=== PATIENT | female | born 1960 | race African-American/Black ===

== ENCOUNTER 2023-12-30 18:37 | Inpatient (IN) | payer MEDICAID ==
[~2023-12-30] VITALS: Ht 162.6 cm; Wt 48.5 kg
[2023-12-30 18:43] VITALS: O2SAT 98
[2023-12-30 21:22] LABS: CHLORIDE 110 mEq/L (98-107); POTASSIUM 3.1 mEq/L (3.5-5.1); SODIUM 141 mEq/L (136-145)
[2023-12-30 21:23] LABS: CALCIUM 8.9 mg/dL (8.7-10.4); CARBON DIOXIDE 22 mEq/L (21-32)
[2023-12-30 21:28] LABS: CREATININE 0.9 mg/dL (0.6-1.0); GLUCOSE 115 mg/dL (70-105); TROPONIN I HIGH SENSITIVITY 5 ng/L (3.0-34); UREA NITROGEN BLOOD 9 mg/dL (9-23)
[2023-12-30 21:29] LABS: LACTIC ACID 2.9 mmol/L (0.4-2.0)
[2023-12-30 21:30] LABS: ALANINE AMINOTRANSFERASE < 7 IU/L (10-49); ALBUMIN 3.5 g/dL (3.2-4.8); BILIRUBIN TOTAL 0.2 mg/dL (0.1-1.0); PROTEIN TOTAL 6.7 g/dL (6.0-8.3)
[2023-12-30 21:41] LABS: INR 1.1; PARTIAL THROMBOPLASTIN TIME 24.5 sec (23.4-31.0); PROTHROMBIN TIME 11.9 sec (9.6-11.0)
[2023-12-30 22:16] LABS: MEAN CORPUSCULAR HGB CONC 27.2 g/dL (31.0-37.0); MEAN CORPUSCULAR VOLUME 51.5 fL (81.0-99.0); MEAN PLATELET VOLUME 8.2 fl (7.4-10.4); PLATELET 459 x1000/uL (130-400); RED BLOOD CELL COUNT 1.96 mill/uL (4.2-5.4); RED CELL DISTRIBUTION WIDTH 19.8 % (11.6-14.6); WHITE BLOOD COUNT 10.3 x1000/uL (4.5-11.0)
[2023-12-30 22:19] LABS: ASPARTATE AMINOTRANSFERASE < 8 IU/L (<34); BILIRUBIN DIRECT < 0.1 mg/dL (<=3.0); ETHANOL BLOOD < 10 mg/dL (<10)
[2023-12-30 22:20] LABS: DIFFERENTIAL COMMENT 1
[2023-12-30 22:23] LABS: HEMOGLOBIN. 2.8 g/dL (12.0-16.0)
[2023-12-30 22:24] LABS: HEMATOCRIT. 10.1 % (36.0-48.0)
[2023-12-30] MEDS: KCL 10MEQ/50ML PREMIX 50 ML IV SCH (22:27)
[2023-12-30 22:34] LABS: HYPOCHROMASIA 2+; MICROCYTOSIS 3+; PLATELET ESTIMATE NORMAL
[2023-12-30] MEDS: IOHEXOL-350 100 ML BOTTLE ONE (23:30)
[2023-12-31] MEDS: KCL 10MEQ/50ML PREMIX 50 ML IV SCH (06:09)
[2023-12-31] MEDS ORDERED: ONDANSETRON HCL 4MG/2ML INJ IV PRN (10:15)
[2023-12-31] MEDS: HYDROCODONE/ACETAMINOPHEN 10/325MG TABLET PO PRN (14:20)
[2023-12-31 15:23] LABS: HEMATOCRIT 25.7 % (36.0-48.0); HEMOGLOBIN 8.3 g/dL (12.0-16.0)
[2023-12-31 15:42] LABS: IRON 147 ug/dL (50-170)
[2023-12-31 15:44] LABS: TOTAL IRON BINDING CAPACITY 260 ug/dl (250-425)
[2023-12-31 17:18] VITALS: BP 144/73; PULSE 81; RESP 18; TEMP 36.55848; O2SAT 100
[2023-12-31] MEDS ORDERED: HYDR25TA PO (17:21)
[2023-12-31] MEDS ORDERED: AMLO5TAB88 PO (17:21)
[2023-12-31 17:22] VITALS: BP 144/73; PULSE 81; RESP 18; TEMP 36.5848
[2023-12-31] MEDS: POLYETHYLENE GLYCOL 3350 (17GM) 1 DOSE PACK PO SCH (17:42)
[2023-12-31 20:00] VITALS: BP 144/49; PULSE 83; RESP 18; TEMP 36.3918; O2SAT 96
[2023-12-31] MEDS: CEFTRIAXONE 1GM/50ML 50 ML IV SCH (21:00)
[2023-12-31] MEDS: VANCOMYCIN 1G PREMIX 200 ML IV NR (22:00)
[2023-12-31 22:27] LABS: HEMATOCRIT 26.4 % (36.0-48.0); HEMOGLOBIN 8.6 g/dL (12.0-16.0)
[2024-01-01] VITALS: BP 125/68; PULSE 79; RESP 17; TEMP 36.44736; O2SAT 99
[2024-01-01 02:15] LABS: HEMATOCRIT 25.4 % (36.0-48.0); HEMOGLOBIN 8.1 g/dL (12.0-16.0)
[2024-01-01 02:37] LABS: *AMPHETAMINES SCREEN URINE NEGATIVE (NEGATIVE)
[2024-01-01 02:38] LABS: *BARBITURATES SCREEN URINE NEGATIVE (NEGATIVE); *BENZODIAZEPINES SCREEN URINE NEGATIVE (NEGATIVE); *COCAINE SCREEN URINE NEGATIVE (NEGATIVE); CANNABINOID URINE SCREEN NEGATIVE (NEGATIVE); ECSTASY MDMA SCREEN URINE NEGATIVE (NEGATIVE); METHADONE URINE SCREEN NEGATIVE (NEGATIVE); OPIATES URINE SCREEN PRESUMPTIVE POSITIVE (NEGATIVE); PHENCYCLIDINE URINE SCREEN NEGATIVE (NEGATIVE)
[2024-01-01 04:00] VITALS: BP 148/82; PULSE 83; RESP 18; TEMP 36.55848; O2SAT 97
[2024-01-01 07:55] LABS: BASOPHILS % 0.5 % (0.0-2.0); EOSINOPHILS % 0.5 % (0.0-5.0); HEMATOCRIT. 26.2 % (36.0-48.0); HEMOGLOBIN. 8.1 g/dL (12.0-16.0); LYMPHOCYTES % 9.8 % (20.0-50.0); MEAN CORPUSCULAR HEMOGLOBIN 21.9 pg (28.0-32.0); MEAN CORPUSCULAR HGB CONC 30.9 g/dL (31.0-37.0); MEAN CORPUSCULAR VOLUME 70.9 fL (81.0-99.0); MEAN PLATELET VOLUME 8.6 fl (7.4-10.4); MONOCYTES % 8.4 % (2.0-8.0); NEUTROPHILS % 80.8 % (40.0-76.0); PLATELET 352 x1000/uL (130-400); RED CELL DISTRIBUTION WIDTH 33.1 % (11.6-14.6); WHITE BLOOD COUNT 11.6 x1000/uL (4.5-11.0)
[2024-01-01 08:00] VITALS: BP 121/58; PULSE 101; RESP 20; TEMP 36.55848; O2SAT 100
[2024-01-01 08:06] LABS: CALCIUM 8.9 mg/dL (8.7-10.4); CHLORIDE 110 mEq/L (98-107); POTASSIUM 3.9 mEq/L (3.5-5.1); SODIUM 137 mEq/L (136-145)
[2024-01-01 08:07] LABS: CARBON DIOXIDE 23 mEq/L (21-32)
[2024-01-01 08:12] LABS: GLUCOSE 89 mg/dL (70-105); UREA NITROGEN BLOOD 10 mg/dL (9-23)
[2024-01-01 08:37] LABS: CREATININE 0.9 mg/dL (0.6-1.0); DIFFERENTIAL COMMENT 1
[2024-01-01] MEDS: LORAZEPAM 2MG/ML INJ IV NR (10:11)
[2024-01-01] MEDS: VANCOMYCIN 1G PREMIX 200 ML IV NR (11:50)
[2024-01-01 12:00] VITALS: BP 132/77; PULSE 100; RESP 18; TEMP 36.50292; O2SAT 98
[2024-01-01 13:08] LABS: HEMATOCRIT 26.8 % (36.0-48.0); HEMOGLOBIN 8.2 g/dL (12.0-16.0)
[2024-01-01 16:00] VITALS: BP 124/68; PULSE 97; RESP 18; TEMP 37.44744; O2SAT 99
[2024-01-01] MEDS: BISACODYL 5MG TABLET PO NR (17:06)
[2024-01-01 17:08] LABS: CLARITY URINE CLEAR (CLEAR); COLOR URINE ORANGE (YELLOW); GLUCOSE URINE NEGATIVE (NEGATIVE); KETONES URINE NEGATIVE (NEGATIVE); LEUKOCYTE ESTERASE URINE NEGATIVE (NEGATIVE); NITRITE URINE NEGATIVE (NEGATIVE); OCCULT BLOOD URINE NEGATIVE (NEGATIVE); PH URINE 6.5 (4.5-8.0); PROTEIN URINE NEGATIVE (NEGATIVE); SPECIFIC GRAVITY URINE 1.006 (1.005-1.030); UROBILINOGEN URINE 0.2 E.U./dL (0.2-1.0)
[2024-01-01 20:00] VITALS: BP 118/67; PULSE 88; RESP 19; TEMP 36.89184; O2SAT 98
[2024-01-01] MEDS: ATORVASTATIN CALCIUM 20MG TABLET PO SCH (20:55)
[2024-01-01 21:59] LABS: HEMATOCRIT 24.9 % (36.0-48.0); HEMOGLOBIN 8.1 g/dL (12.0-16.0)
[2024-01-01] MEDS: VANCOMYCIN 500MG PREMIX 100 ML IV SCH (22:10)
[2024-01-02] VITALS: BP 120/66; PULSE 90; RESP 19; TEMP 36.61404; O2SAT 100
[2024-01-02 01:49] LABS: HEMATOCRIT 25.3 % (36.0-48.0)
[2024-01-02 04:00] VITALS: BP 122/67; PULSE 89; RESP 19; TEMP 36.6696; O2SAT 100
[2024-01-02 07:37] LABS: HEMATOCRIT 28.7 % (36.0-48.0); HEMOGLOBIN 8.8 g/dL (12.0-16.0)
[2024-01-02 08:00] VITALS: BP 147/84; PULSE 91; RESP 18; TEMP 37.00296; O2SAT 96
[2024-01-02] MEDS ORDERED: NALOXONE HCL 0.4MG/ML VIAL IV PRN (11:30)
[2024-01-02 12:00] VITALS: BP 145/79; PULSE 109; RESP 18; TEMP 38.00304; O2SAT 100
[2024-01-02] MEDS: ACETAMINOPHEN 325MG TABLET PO PRN (13:29)
[2024-01-02 16:00] VITALS: BP 143/84; PULSE 98; RESP 18; TEMP 37.00296; O2SAT 100
[2024-01-02 20:00] VITALS: BP 129/60; PULSE 95; RESP 20; TEMP 36.89184; O2SAT 95
[2024-01-03] VITALS: BP 130/65; PULSE 92; RESP 20; TEMP 36.78072; O2SAT 99
[2024-01-03 04:00] VITALS: BP 132/60; PULSE 87; RESP 20; TEMP 36.6696; O2SAT 98
[2024-01-03 07:11] LABS: CHLORIDE 108 mEq/L (98-107); POTASSIUM 3.9 mEq/L (3.5-5.1); SODIUM 139 mEq/L (136-145)
[2024-01-03 07:12] LABS: CARBON DIOXIDE 22 mEq/L (21-32)
[2024-01-03 07:17] LABS: GLUCOSE 83 mg/dL (70-105); UREA NITROGEN BLOOD 5 mg/dL (9-23)
[2024-01-03 07:32] LABS: CREATININE 0.5 mg/dL (0.6-1.0)
[2024-01-03 08:00] VITALS: BP 130/69; PULSE 88; RESP 18; TEMP 36.6696; O2SAT 99
[2024-01-03] MEDS: VANCOMYCIN 750MG PREMIX 150 ML IV SCH (10:47)
[2024-01-03 12:00] VITALS: BP 114/60; PULSE 87; RESP 18; TEMP 36.55848; O2SAT 99
[2024-01-03 16:00] VITALS: BP 137/76; PULSE 90; RESP 18; TEMP 36.61404; O2SAT 99
[2024-01-03 20:00] VITALS: BP 123/60; PULSE 89; RESP 18; TEMP 36.6696; O2SAT 97
[2024-01-04] VITALS: BP 120/77; PULSE 90; RESP 20; TEMP 36.55848; O2SAT 98
[2024-01-04 04:00] VITALS: BP 119/69; PULSE 93; RESP 18; TEMP 36.6696; O2SAT 97
[2024-01-04 08:00] VITALS: BP 135/68; PULSE 84; RESP 20; TEMP 36.50292; O2SAT 99
[2024-01-04 11:49] VITALS: BP 138/72; PULSE 89; RESP 19; TEMP 36.6696; O2SAT 98
[2024-01-04] MEDS: SODIUM HYPOCHLORITE 0.125% 473ML SOLUTION TOP SCH (14:34)
[2024-01-04 15:40] VITALS: BP 133/78; PULSE 94; RESP 20; TEMP 35.94732; O2SAT 100
[2024-01-04 16:14] LABS: BASOPHILS % 0.9 % (0.0-2.0); EOSINOPHILS % 1.5 % (0.0-5.0); HEMOGLOBIN. 8.3 g/dL (12.0-16.0); LYMPHOCYTES % 15.4 % (20.0-50.0); MEAN CORPUSCULAR HEMOGLOBIN 22.9 pg (28.0-32.0); MEAN CORPUSCULAR HGB CONC 31.9 g/dL (31.0-37.0); MEAN CORPUSCULAR VOLUME 71.8 fL (81.0-99.0); MEAN PLATELET VOLUME 8.6 fl (7.4-10.4); MONOCYTES % 7.8 % (2.0-8.0); NEUTROPHILS % 74.4 % (40.0-76.0); PLATELET 357 x1000/uL (130-400); RED BLOOD CELL COUNT 3.62 mill/uL (4.2-5.4); RED CELL DISTRIBUTION WIDTH 35.1 % (11.6-14.6); WHITE BLOOD COUNT 10.1 x1000/uL (4.5-11.0)
[2024-01-04 16:23] LABS: DIFFERENTIAL COMMENT 1
[2024-01-04 16:39] LABS: CHLORIDE 105 mEq/L (98-107); POTASSIUM 4.2 mEq/L (3.5-5.1); SODIUM 138 mEq/L (136-145)
[2024-01-04 16:40] LABS: CARBON DIOXIDE 25 mEq/L (21-32)
[2024-01-04 16:41] LABS: CALCIUM 8.9 mg/dL (8.7-10.4)
[2024-01-04 16:46] LABS: CREATININE 0.6 mg/dL (0.6-1.0); GLUCOSE 108 mg/dL (70-105); UREA NITROGEN BLOOD 6 mg/dL (9-23)
[2024-01-04 16:48] LABS: PHOSPHORUS 3.1 mg/dL (2.5-4.9)
[2024-01-04 20:00] VITALS: BP 126/71; PULSE 94; RESP 18; TEMP 36.22512; O2SAT 98
[2024-01-05] VITALS (8 sets, daily range): BP systolic 122–147; BP diastolic 66–81; PULSE 79–95; RESP 18–20; TEMP 36.33624–37.00296; O2SAT 97–100
[2024-01-05 06:50] LABS: BASOPHILS % 0.8 % (0.0-2.0); EOSINOPHILS % 1.2 % (0.0-5.0); HEMATOCRIT. 26.5 % (36.0-48.0); HEMOGLOBIN. 8.5 g/dL (12.0-16.0); LYMPHOCYTES % 15.6 % (20.0-50.0); MEAN CORPUSCULAR HEMOGLOBIN 23.2 pg (28.0-32.0); MEAN CORPUSCULAR HGB CONC 32.3 g/dL (31.0-37.0); MEAN CORPUSCULAR VOLUME 71.7 fL (81.0-99.0); MEAN PLATELET VOLUME 8.7 fl (7.4-10.4); MONOCYTES % 8.3 % (2.0-8.0); NEUTROPHILS % 74.1 % (40.0-76.0); PLATELET 337 x1000/uL (130-400); RED BLOOD CELL COUNT 3.69 mill/uL (4.2-5.4); RED CELL DISTRIBUTION WIDTH 34.8 % (11.6-14.6); WHITE BLOOD COUNT 10.9 x1000/uL (4.5-11.0)
[2024-01-05 06:59] LABS: CARBON DIOXIDE 26 mEq/L (21-32); CHLORIDE 104 mEq/L (98-107); POTASSIUM 4.1 mEq/L (3.5-5.1); SODIUM 137 mEq/L (136-145)
[2024-01-05 07:00] LABS: CALCIUM 9.1 mg/dL (8.7-10.4)
[2024-01-05 07:02] LABS: DIFFERENTIAL COMMENT 1
[2024-01-05 07:05] LABS: ALBUMIN 3.3 g/dL (3.2-4.8); CREATININE 0.7 mg/dL (0.6-1.0); GLUCOSE 84 mg/dL (70-105)
[2024-01-05 07:06] LABS: UREA NITROGEN BLOOD 10 mg/dL (9-23)
[2024-01-05 07:07] LABS: PHOSPHORUS 3.5 mg/dL (2.5-4.9)
[2024-01-05 07:08] LABS: PREALBUMIN 6.5 mg/dl (10.0-40.0)
[2024-01-06 00:03] VITALS: BP 123/60; PULSE 80; RESP 20; TEMP 36.22512; O2SAT 96
[2024-01-06 08:00] VITALS: BP 137/66; PULSE 103; RESP 20; TEMP 36.72516; O2SAT 100
[2024-01-06 12:00] VITALS: BP 128/66; PULSE 94; RESP 20; TEMP 36.78072
[2024-01-06 15:36] VITALS: BP 140/79; PULSE 93; RESP 19; TEMP 36.61404; O2SAT 99
[2024-01-06 20:00] VITALS: BP 114/58; PULSE 91; RESP 17; TEMP 36.72516; O2SAT 100
[2024-01-07] VITALS: BP 123/64; PULSE 87; RESP 18; TEMP 36.55848; O2SAT 99
[2024-01-07 04:00] VITALS: RESP 17; TEMP 36.44736
[2024-01-07 08:00] VITALS: BP 122/57; PULSE 103; RESP 18; TEMP 36.6696
[2024-01-07 12:00] VITALS: BP 130/81; PULSE 96; RESP 19; TEMP 36.55848
[2024-01-07 16:00] VITALS: BP 129/61; PULSE 95; RESP 20; TEMP 36.50292
[2024-01-08] VITALS: BP 150/70; PULSE 86; RESP 20; TEMP 36.55848; O2SAT 100
[2024-01-08 04:00] VITALS: BP_SYST 137; BP_SYST 143; BP_DIAS 60; BP_DIAS 69; PULSE 106; PULSE 95; RESP 19; TEMP 36.6696; TEMP 36.89184; O2SAT 100; O2SAT 96
[2024-01-08 08:00] VITALS: BP 133/58; PULSE 96; RESP 18; TEMP 36.50292; O2SAT 100
[2024-01-08 12:00] VITALS: BP 134/67; PULSE 87; RESP 19; TEMP 36.114; O2SAT 98
[2024-01-08 20:00] VITALS: BP 137/69; PULSE 106; RESP 19; TEMP 36.89184; O2SAT 100
[2024-01-09] VITALS: BP 112/56; PULSE 99; RESP 19; TEMP 36.44736; O2SAT 99
[2024-01-09 04:00] VITALS: BP 129/62; PULSE 91; RESP 19; TEMP 36.9474; O2SAT 100
[2024-01-09 08:00] VITALS: BP 152/79; PULSE 97; RESP 20; TEMP 36.50292; O2SAT 99
[2024-01-09 16:00] VITALS: BP 146/86; PULSE 95; RESP 18; TEMP 36.44736; O2SAT 96
[2024-01-10 08:00] VITALS: BP 145/84; PULSE 100; RESP 18; TEMP 36.78072; O2SAT 98
[2024-01-10 12:00] VITALS: BP 153/76; PULSE 94; RESP 19; TEMP 36.72516; O2SAT 97
[2024-01-10 13:08] LABS: VITAMIN B12 SERUM 481 pg/mL (211-911)
[2024-01-10 13:09] LABS: FOLIC ACID (FOLATE) SERUM 2.94 ng/mL (>5.38)
[2024-01-10 16:00] VITALS: BP 135/73; PULSE 100; RESP 17; TEMP 36.72516; O2SAT 100
[2024-01-11] VITALS: BP 133/64; PULSE 93; RESP 20; TEMP 36.72516; O2SAT 100
[2024-01-11 08:00] VITALS: BP 128/64; PULSE 92; RESP 19; TEMP 37.05852; O2SAT 99
[2024-01-11 12:00] VITALS: BP 122/66; PULSE 102; RESP 19; TEMP 35.94732; O2SAT 100
[2024-01-11 16:00] VITALS: BP 129/67; PULSE 98; RESP 19; TEMP 36.55848; O2SAT 99
[2024-01-11 20:00] VITALS: BP 143/87; PULSE 94; RESP 18; TEMP 36.3918; O2SAT 100
[2024-01-12] VITALS: BP 149/78; PULSE 92; RESP 18; TEMP 36.50292; O2SAT 100
[2024-01-12 04:00] VITALS: BP 141/74; PULSE 100; RESP 20; TEMP 36.72516; O2SAT 100
[2024-01-12 08:00] VITALS: BP 154/83; PULSE 96; RESP 19; TEMP 36.50292; O2SAT 99
[2024-01-12 12:00] VITALS: BP 138/74; PULSE 71; RESP 18; TEMP 36.72516; O2SAT 96
[2024-01-12 20:00] VITALS: BP 143/85; PULSE 89; RESP 20; TEMP 36.44736; O2SAT 100
[2024-01-13] VITALS (10 sets, daily range): BP systolic 102–147; BP diastolic 47–79; PULSE 65–111; RESP 18–21; TEMP 35.89176–37.55856; O2SAT 97–100
[2024-01-13] MEDS: TRAMADOL 50MG TABLET PO PRN (10:44)
[2024-01-13] MEDS ORDERED: NALOXONE HCL 0.4MG/ML VIAL IV PRN (10:45)
[2024-01-13 12:56] LABS: BASOPHILS % 0.5 % (0.0-2.0); EOSINOPHILS % 0.4 % (0.0-5.0); LYMPHOCYTES % 15.9 % (20.0-50.0); MEAN CORPUSCULAR HEMOGLOBIN 22.4 pg (28.0-32.0); MEAN CORPUSCULAR HGB CONC 31.7 g/dL (31.0-37.0); MEAN CORPUSCULAR VOLUME 70.7 fL (81.0-99.0); MEAN PLATELET VOLUME 8.7 fl (7.4-10.4); MONOCYTES % 4.7 % (2.0-8.0); NEUTROPHILS % 78.5 % (40.0-76.0); PLATELET 461 x1000/uL (130-400); RED BLOOD CELL COUNT 2.85 mill/uL (4.2-5.4); RED CELL DISTRIBUTION WIDTH 32.6 % (11.6-14.6); WHITE BLOOD COUNT 11.3 x1000/uL (4.5-11.0)
[2024-01-13 13:06] LABS: CHLORIDE 106 mEq/L (98-107); POTASSIUM 3.9 mEq/L (3.5-5.1); SODIUM 139 mEq/L (136-145)
[2024-01-13 13:07] LABS: CALCIUM 9.2 mg/dL (8.7-10.4); CARBON DIOXIDE 26 mEq/L (21-32)
[2024-01-13 13:12] LABS: CREATININE 0.7 mg/dL (0.6-1.0); GLUCOSE 118 mg/dL (70-105); UREA NITROGEN BLOOD 13 mg/dL (9-23)
[2024-01-13 13:19] LABS: DIFFERENTIAL COMMENT 1
[2024-01-13 13:25] LABS: HEMOGLOBIN. 6.4 g/dL (12.0-16.0)
[2024-01-13 13:26] LABS: HEMATOCRIT. 20.2 % (36.0-48.0)
[2024-01-14] VITALS (9 sets, daily range): BP systolic 112–137; BP diastolic 59–86; PULSE 87–132; RESP 13–20; TEMP 36.3918–37.11408; O2SAT 97–100
[2024-01-14 12:01] LABS: HEMATOCRIT. 22.6 % (36.0-48.0); HEMOGLOBIN. 7.2 g/dL (12.0-16.0); MEAN CORPUSCULAR HEMOGLOBIN 23.8 pg (28.0-32.0); MEAN CORPUSCULAR VOLUME 74.5 fL (81.0-99.0); MEAN PLATELET VOLUME 8.7 fl (7.4-10.4); PLATELET 396 x1000/uL (130-400); RED BLOOD CELL COUNT 3.04 mill/uL (4.2-5.4); WHITE BLOOD COUNT 8.3 x1000/uL (4.5-11.0)
[2024-01-14 12:36] LABS: DIFFERENTIAL COMMENT 1
[2024-01-14] MEDS: SODIUM CHLORIDE 0.9% 500 ML IV ONE (14:45)
[2024-01-14 18:33] LABS: PLATELET ESTIMATE NORMAL
[2024-01-14 18:34] LABS: ANISOCYTOSIS 2+; HYPOCHROMASIA 1+; MICROCYTOSIS 2+
[2024-01-15] VITALS (16 sets, daily range): BP systolic 114–143; BP diastolic 65–99; PULSE 92–116; RESP 9–19; TEMP 36.3918–37.44744; O2SAT 76–100
[2024-01-15 02:54] LABS: HEMATOCRIT 21.1 % (36.0-48.0)
[2024-01-15 03:20] LABS: HEMOGLOBIN 6.9 g/dL (12.0-16.0)
[2024-01-16] VITALS (9 sets, daily range): BP systolic 131–146; BP diastolic 69–87; PULSE 83–118; RESP 14–19; TEMP 36.6696–37.05852; O2SAT 96–100
[2024-01-16 09:11] LABS: HEMATOCRIT 25.8 % (36.0-48.0)
[2024-01-16 09:17] LABS: HEMOGLOBIN 8.6 g/dL (12.0-16.0)
[2024-01-17] VITALS: BP 142/77; PULSE 95; RESP 19; TEMP 36.83628; O2SAT 100
[2024-01-17] MEDS: TRAMADOL 50MG TABLET PO PRN (00:15)
[2024-01-17 04:00] VITALS: BP 117/62; PULSE 94; RESP 19; TEMP 36.9474; O2SAT 100
[2024-01-17 08:00] VITALS: BP 157/69; PULSE 91; RESP 16; TEMP 36.55848; O2SAT 100
[2024-01-17 12:00] VITALS: BP 128/69; PULSE 102; RESP 18; TEMP 36.61404; O2SAT 100
[2024-01-17 16:00] VITALS: BP 147/81; PULSE 110; RESP 18; TEMP 36.50292; O2SAT 100
[2024-01-18] VITALS: BP 144/73; PULSE 89; RESP 19; TEMP 37.05852; O2SAT 100
[2024-01-18 04:00] VITALS: BP 146/68; PULSE 90; RESP 19; TEMP 37.05852; O2SAT 100
[2024-01-18 08:00] VITALS: BP_SYST 146; BP_SYST 151; BP_DIAS 75; BP_DIAS 80; PULSE 78; PULSE 86; RESP 17; RESP 18; TEMP 36.3918; TEMP 37.00296; O2SAT 100; O2SAT 99
[2024-01-18 10:02] LABS: BASOPHILS % 0.8 % (0.0-2.0); EOSINOPHILS % 1.2 % (0.0-5.0); HEMATOCRIT. 26.2 % (36.0-48.0); HEMOGLOBIN. 8.4 g/dL (12.0-16.0); LYMPHOCYTES % 20.3 % (20.0-50.0); MEAN CORPUSCULAR HEMOGLOBIN 26.1 pg (28.0-32.0); MEAN CORPUSCULAR HGB CONC 32.1 g/dL (31.0-37.0); MEAN CORPUSCULAR VOLUME 81.4 fL (81.0-99.0); MEAN PLATELET VOLUME 8.7 fl (7.4-10.4); MONOCYTES % 9.2 % (2.0-8.0); NEUTROPHILS % 68.5 % (40.0-76.0); PLATELET 395 x1000/uL (130-400); RED BLOOD CELL COUNT 3.22 mill/uL (4.2-5.4); RED CELL DISTRIBUTION WIDTH 27.1 % (11.6-14.6)
[2024-01-18 10:03] LABS: CALCIUM 9.8 mg/dL (8.7-10.4); CARBON DIOXIDE 30 mEq/L (21-32); CHLORIDE 103 mEq/L (98-107); POTASSIUM 4.4 mEq/L (3.5-5.1); SODIUM 139 mEq/L (136-145)
[2024-01-18 10:06] LABS: DIFFERENTIAL COMMENT 1
[2024-01-18 10:09] LABS: CREATININE 0.6 mg/dL (0.6-1.0); GLUCOSE 87 mg/dL (70-105); UREA NITROGEN BLOOD 10 mg/dL (9-23)
[2024-01-18 12:00] VITALS: BP_SYST 125; BP_SYST 148; BP_DIAS 70; BP_DIAS 78; PULSE 78; PULSE 92; RESP 18; TEMP 35.8362; TEMP 37.00296; O2SAT 97; O2SAT 99
[2024-01-18 16:00] VITALS: BP 146/80; PULSE 78; PULSE 85; RESP 17; RESP 18; TEMP 36.3918; TEMP 37.00296; O2SAT 99
[2024-01-18] MEDS ORDERED: NALOXONE HCL 0.4MG/ML VIAL IV PRN (20:00)
[2024-01-19] VITALS: BP 142/70; PULSE 90; RESP 17; TEMP 36.28068; O2SAT 97
[2024-01-19 04:00] VITALS: BP 136/62; PULSE 87; RESP 17; TEMP 36.3918; O2SAT 100
[2024-01-19 08:00] VITALS: BP 142/75; PULSE 93; RESP 18; TEMP 36.44736; O2SAT 100
[2024-01-19 12:00] VITALS: BP 101/64; PULSE 112; RESP 18; TEMP 36.55848; O2SAT 100
[2024-01-19 16:00] VITALS: BP 121/74; PULSE 102; RESP 18; TEMP 36.3918; O2SAT 100
[2024-01-19 20:00] VITALS: BP 114/71; PULSE 106; RESP 17; TEMP 36.83628; O2SAT 100
[2024-01-20] VITALS: BP 131/67; PULSE 93; RESP 19; TEMP 36.114; O2SAT 99
[2024-01-20 04:00] VITALS: BP 126/67; PULSE 83; RESP 20; TEMP 37.00296; O2SAT 98
[2024-01-20 08:00] VITALS: BP 134/70; PULSE 90; RESP 18; TEMP 36.44736; O2SAT 100
[2024-01-20 12:00] VITALS: BP 117/76; PULSE 107; RESP 18; TEMP 36.44736; O2SAT 100
[2024-01-20 16:00] VITALS: BP 141/76; PULSE 117; RESP 19; TEMP 36.3918; O2SAT 100
[2024-01-20 20:00] VITALS: BP 112/49; PULSE 98; RESP 18; TEMP 36.89184; O2SAT 95
[2024-01-21] VITALS: BP 134/73; PULSE 114; RESP 20; TEMP 36.61404; O2SAT 100
[2024-01-21 04:00] VITALS: BP 148/62; PULSE 108; RESP 20; TEMP 36.83628; O2SAT 99
[2024-01-21 08:00] VITALS: BP 149/75; PULSE 105; RESP 17; TEMP 36.72516; O2SAT 100
[2024-01-21 12:00] VITALS: BP 142/70; PULSE 104; RESP 18; TEMP 36.9474; O2SAT 100
[2024-01-21 16:00] VITALS: BP 120/55; PULSE 110; RESP 18; TEMP 36.61404; O2SAT 100
[2024-01-21 20:00] VITALS: BP 113/52; PULSE 111; RESP 20; TEMP 36.44736; O2SAT 99
[2024-01-22 00:28] VITALS: BP 126/54; PULSE 102; RESP 17; TEMP 36.33624; O2SAT 97
[2024-01-22 04:00] VITALS: BP 117/76; PULSE 107; RESP 19; TEMP 36.33624; O2SAT 99
[2024-01-22 08:00] VITALS: BP 135/73; PULSE 105; RESP 18; TEMP 36.114; O2SAT 95
[2024-01-22 12:00] VITALS: BP 146/77; PULSE 105; RESP 17; TEMP 36.3918; O2SAT 100
[2024-01-22 16:00] VITALS: BP 140/70; PULSE 100; RESP 18; TEMP 36.50292; O2SAT 100
[2024-01-22 20:00] VITALS: BP 119/54; PULSE 106; RESP 18; TEMP 36.61404; O2SAT 100
[2024-01-22 21:41] LABS: HEMATOCRIT 21.8 % (36.0-48.0); HEMOGLOBIN 7.2 g/dL (12.0-16.0)
[2024-01-23] VITALS: BP 121/64; PULSE 98; RESP 18; TEMP 36.50292; O2SAT 98
[2024-01-23 04:00] VITALS: BP 129/63; PULSE 95; RESP 18; TEMP 36.55848; O2SAT 100
[2024-01-23 08:00] VITALS: BP 141/67; PULSE 60; RESP 18; TEMP 36.72516; O2SAT 100
[2024-01-23 11:23] VITALS: BP 117/59; PULSE 69; RESP 19; TEMP 36.72516; O2SAT 97
[2024-01-23 13:06] LABS: BASOPHILS % 0.4 % (0.0-2.0); HEMATOCRIT. 23.1 % (36.0-48.0); HEMOGLOBIN. 7.2 g/dL (12.0-16.0); LYMPHOCYTES % 16.5 % (20.0-50.0); MEAN CORPUSCULAR HGB CONC 31.4 g/dL (31.0-37.0); MEAN CORPUSCULAR VOLUME 79.5 fL (81.0-99.0); NEUTROPHILS % 73.1 % (40.0-76.0); PLATELET 443 x1000/uL (130-400); RED CELL DISTRIBUTION WIDTH 24.8 % (11.6-14.6)
[2024-01-23 13:15] LABS: CARBON DIOXIDE 26 mEq/L (21-32); CHLORIDE 105 mEq/L (98-107); POTASSIUM 4.3 mEq/L (3.5-5.1); SODIUM 140 mEq/L (136-145)
[2024-01-23 13:16] LABS: CALCIUM 9.1 mg/dL (8.7-10.4)
[2024-01-23 13:18] LABS: DIFFERENTIAL COMMENT 1
[2024-01-23 13:20] LABS: CREATININE 0.7 mg/dL (0.6-1.0)
[2024-01-23 13:21] LABS: GLUCOSE 101 mg/dL (70-105); UREA NITROGEN BLOOD 8 mg/dL (9-23)
[2024-01-23 13:23] LABS: PHOSPHORUS 3.7 mg/dL (2.5-4.9)
[2024-01-23 16:00] VITALS: BP 125/65; PULSE 70; RESP 18; TEMP 36.72516; O2SAT 95
[2024-01-23] MEDS ORDERED: DOCUSATE SODIUM 250MG CAPSULE PO PRN (16:15)
[2024-01-23 20:00] VITALS: BP 126/63; PULSE 106; RESP 18; TEMP 36.61404; O2SAT 100
[2024-01-24] VITALS (7 sets, daily range): BP systolic 128–159; BP diastolic 62–91; PULSE 96–118; RESP 18–20; TEMP 35.78064–36.89184; O2SAT 97–100
[2024-01-24] MEDS: DOCUSATE SODIUM 250MG CAPSULE PO SCH (10:46)
[2024-01-25 04:00] VITALS: BP 138/77; PULSE 106; RESP 19; TEMP 36.78072; O2SAT 98
[2024-01-25 08:00] VITALS: BP 135/69; PULSE 104; RESP 20; TEMP 36.3918; O2SAT 100
[2024-01-25 12:00] VITALS: BP 136/78; PULSE 114; RESP 20; TEMP 36.33624; O2SAT 100
[2024-01-25 16:00] VITALS: BP 136/74; PULSE 109; RESP 20; TEMP 36.3918; O2SAT 100
[2024-01-25 20:00] VITALS: BP 153/82; PULSE 101; RESP 19; TEMP 36.44736; O2SAT 99
[2024-01-26] VITALS: BP 144/72; PULSE 104; RESP 20; TEMP 36.72516; O2SAT 98
[2024-01-26 04:00] VITALS: BP 156/87; PULSE 106; RESP 19; TEMP 36.3918; O2SAT 97
[2024-01-26 08:00] VITALS: BP 127/62; PULSE 99; RESP 18; TEMP 36.05844; O2SAT 100
[2024-01-26 12:00] VITALS: BP 118/54; PULSE 96; RESP 18; TEMP 36.50292; O2SAT 100
[2024-01-26] MEDS: HYDROCODONE/ACETAMINOPHEN 5/325MG TABLET PO PRN (13:31)
[2024-01-26 16:00] VITALS: BP 120/64; PULSE 90; RESP 18; TEMP 36.3918; O2SAT 100
[2024-01-26 20:00] VITALS: BP 117/54; PULSE 76; RESP 18; TEMP 36.83628; O2SAT 100
[2024-01-27] VITALS: BP 135/54; PULSE 94; RESP 16; TEMP 36.61404; O2SAT 99
[2024-01-27 04:00] VITALS: BP 127/63; PULSE 78; RESP 19; TEMP 36.33624; O2SAT 100
[2024-01-27 08:00] VITALS: BP 126/58; PULSE 90; RESP 20; TEMP 36.61404; O2SAT 100
[2024-01-27 11:32] VITALS: BP 122/72; PULSE 100; RESP 20; TEMP 36.61404; O2SAT 99
[2024-01-27 16:07] VITALS: PULSE 90; TEMP 97.9
== END 2024-01-27 16:59 | disposition home health service (06) | DRG 45 ==
LOC: ER 18:37 → EDBEDREQ 22:02 → EDBEDREQTM 22:02 → MICUSO 22:34 → EDBEDREQTM 22:40 → EDBEDREQSVC 22:40 → 8WST 12-31 16:59 → 6EST 01-06 01:02 → 5EST 01-14 18:05 → 6EST 01-16 17:22
PROVIDERS: ADMIT Internal Medicine; ATTEND Internal Medicine
PROC: 30233N0 Transfusion of Autologous Red Blood Cells into Peripheral Vein, Percutaneous Approach (ICD-10-PCS; principal; 2023-12-30)
DX: I63.511 Cerebral infarction due to unspecified occlusion or stenosis of right middle cerebral artery (principal); R57.8 Other shock; G93.41 Metabolic encephalopathy; C43.9 Malignant melanoma of skin, unspecified; E46 Unspecified protein-calorie malnutrition; B48.8 Other specified mycoses; E87.20 Acidosis, unspecified; C47 Malignant neoplasm of peripheral nerves and autonomic nervous system; D64.9 Anemia, unspecified; K59.09 Other constipation; E86.9 Volume depletion, unspecified; E87.6 Hypokalemia; K59.00 Constipation, unspecified; Z85.831 Personal history of malignant neoplasm of soft tissue; Z68.1 Body mass index [BMI] 19.9 or less, adult
CPT/HCPCS: 36415; 70496; 70498; 70551; 71045; 71260; 80048; 80061; 80076; 80202; 80305; 80320; 81003; 82040; 82607; 82746; 83540; 83550; 83605; 83735; 84100; 84134; 84484; 85014; 85018; 85025; 86850; 86900; 86920; 93005; 93970; 97110; 97112; 97116; 97162; 97164; 97166; 97530; 97535; 99291; C1893; J0696; J2060; J3370; J3480; P9016; Q9967; G0480